=== PATIENT | male | born 1975 | race Caucasian/White ===

== ENCOUNTER 2018-07-15 21:56 | Emergency (ER) | payer SELFPAY ==
[~2018-07-15] VITALS: Ht 172.7 cm; Wt 77.1 kg
[2018-07-15] MEDS ORDERED: TDAP DIPH,PERTUSS,TET VAC/PF 0.5 ML DISP.SYRIN IM ONE ×2 (23:45→23:46)
--- NOTE | 2018-07-15 23:56 | NUR ---
Patient discharged to home in stable conditon. Written and verbal after care instructions given. Patient verbalizes understanding of instructions.
== END 2018-07-15 23:57 | disposition home or self-care (01) ==
LOC: ER 21:57
DX: S71.152A Open bite, left thigh, initial encounter (principal); W54.0XXA Bitten by dog, initial encounter; Y93.89 Activity, other specified; Y92.89 Other specified places as the place of occurrence of the external cause; Y99.8 Other external cause status
CPT/HCPCS: 90715; A4663

== ENCOUNTER 2019-06-03 13:53 | Emergency (ER) | payer OTHER ==
[~2019-06-03] VITALS: Ht 172.7 cm; Wt 77.1 kg
--- NOTE | 2019-06-03 14:45 | NUR ---
Dr Tapia at the bedside for MSE.
[2019-06-03 15:01] VITALS: BP 120/55
--- NOTE | 2019-06-03 15:02 | NUR ---
Patient discharged to home in stable conditon. Written and verbal after care instructions given. Patient verbalizes understanding of instructions.
== END 2019-06-03 15:02 | disposition home or self-care (01) ==
LOC: ER 13:53
DX: B34.9 Viral infection, unspecified (principal)
CPT/HCPCS: A4663

== ENCOUNTER 2020-12-07 13:15 | Emergency (ER) | payer OTHER ==
[~2020-12-07] VITALS: Ht 167.6 cm; Wt 70.8 kg
[2020-12-07] MEDS ORDERED: LORAZEPAM 0.5 MG TABLET ONE (13:43)
[2020-12-07] MEDS ORDERED: LORAZEPAM 0.5 MG TABLET PO ONE (13:45)
[2020-12-07 13:49] LABS: HEMATOCRIT 48.5 % (36.7-47.1); MEAN CORPUSCULAR HEMOGLOBIN 31.9 uug (23.8-33.4); MEAN CORPUSCULAR VOLUME 93.5 fL (73.0-96.2); PLATELET COUNT (AUTO) 180 K/uL (152-348)
[2020-12-07 13:54] LABS: CREATININE 0.9 mg/dL (0.6-1.3); POTASSIUM 4.3 mmol/L (3.5-5.1)
[2020-12-07 14:00] LABS: BILIRUBIN,DIRECT 0.2 mg/dL (0.0-0.2); BILIRUBIN,TOTAL 0.8 mg/dL (0.2-1.0); TOTAL PROTEIN, SERUM 7.5 g/dL (6.4-8.2)
[2020-12-07 14:33] LABS: THYROID STIMULATING HORMONE 1.745 mIU/mL (0.358-3.740)
--- NOTE | 2020-12-07 15:45 | NUR ---
Pt resting in gurney with NAD noted, pending repeat troponin.
[2020-12-07] MEDS ORDERED: CLON0.5T4 PO (18:01)
--- NOTE | 2020-12-07 18:26 | NUR ---
Patient discharged to home in stable condition. Written and verbal after care instructions given. Patient verbalizes understanding of instructions. Stressed follow up or return to ER for worsening s/s.
== END 2020-12-07 18:31 | disposition home or self-care (01) ==
LOC: ER 13:17
DX: R00.2 Palpitations (principal); F41.9 Anxiety disorder, unspecified; F17.210 Nicotine dependence, cigarettes, uncomplicated; E78.5 Hyperlipidemia, unspecified; Z79.899 Other long term (current) drug therapy
CPT/HCPCS: 36415; 70030-TC; 71045; 84443; 85025; 93005; A4663

== ENCOUNTER 2020-12-28 05:19 | Emergency (ER) | payer OTHER ==
[~2020-12-28] VITALS: Ht 170.2 cm; Wt 77.6 kg
[~2020-12-28 05:19] MED LIST: CLON0.5T4 PO
--- NOTE | 2020-12-28 05:33 | NUR ---
Dr. Alvarado at bedside for MSE.
[2020-12-28] MEDS ORDERED: KETOROLAC TROMETHAMINE 60 MG INJ IM ONE ×3 (05:45→05:58)
--- NOTE | 2020-12-28 05:48 | NUR ---
Xray at bedside.
[2020-12-28] MEDS ORDERED: NAPR-1164 PO (06:12)
[2020-12-28] MEDS ORDERED: OXYC-128 PO (06:12)
[2020-12-28 06:15] LABS: HEMATOCRIT 46.9 % (36.7-47.1); MEAN CORPUSCULAR VOLUME 93.9 fL (73.0-96.2); PLATELET COUNT (AUTO) 160 K/uL (152-348)
[2020-12-28 06:23] LABS: CREATININE 0.8 mg/dL (0.6-1.3); POTASSIUM 4.3 mmol/L (3.5-5.1)
[2020-12-28 07:06] VITALS: BP 110/59
== END 2020-12-28 07:00 | disposition home or self-care (01) ==
LOC: ER 05:20
DX: R09.1 Pleurisy (principal); E78.5 Hyperlipidemia, unspecified; K21.9 Gastro-esophageal reflux disease without esophagitis; F17.210 Nicotine dependence, cigarettes, uncomplicated
CPT/HCPCS: 36415; 71045; 80048; 85025; 85379; 87040 ×2; 96374; 99284; J1885 ×2; A4663

== ENCOUNTER 2021-08-03 22:54 | Emergency (ER) | payer OTHER ==
[~2021-08-03] VITALS: Ht 172.7 cm; Wt 79.4 kg
[~2021-08-03 22:54] MED LIST changes: +NAPR-1164 PO; +OXYC-128 PO
--- NOTE | 2021-08-03 23:28 | NUR ---
DR. MELO AT BEDSIDE, MSE IN PROGRESS.
[2021-08-03] MEDS ORDERED: KETOROLAC TROMETHAMINE 60 MG INJ IM ONE ×2 (23:45→23:50)
[2021-08-03] MEDS ORDERED: DEXAMETHASONE SOD PHOSPHATE 4 MG INJ IM ONE (23:45)
[2021-08-03] MEDS ORDERED: DEXAMETHASONE SOD PHOSPHATE 10 MG INJ ONE ×2 (23:50→23:51)
--- NOTE | 2021-08-04 01:12 | NUR ---
Patient discharged to home in stable condition. Written and verbal after care instructions given. Patient verbalizes understanding of instructions. Stressed follow up or return to ER for worsening s/s. Steady gait. No changes in LOC. No SOB or labored breathing. Denies any pain/discomfort upon discharge.
[2021-08-04 01:18] VITALS: BP 129/62
== END 2021-08-04 01:20 | disposition home or self-care (01) ==
LOC: ER 22:57
DX: U07.1 COVID-19 (principal); F17.210 Nicotine dependence, cigarettes, uncomplicated; E78.5 Hyperlipidemia, unspecified; K21.9 Gastro-esophageal reflux disease without esophagitis
CPT/HCPCS: 87070; 87426; 96372 ×2; 99284; J1100; J1885; A4663